=== PATIENT | male | born 1970 | race Caucasian/White ===

== ENCOUNTER 2018-02-03 15:49 | Emergency (ER) | payer BC ==
--- NOTE | 2018-02-03 18:05 | UC ---
Lower Extremity/Ankle HPI - HPI Summary HPI Summary: walked [place] distances in [place] and developed a blister on trhe foot several days ago. having trouble walking now on it denies ever or chills. family hx. positive for DM - History of Current Complaint Chief Complaint: UCLowerExtremity Stated Complaint: SOFT TISSUE COMPLAINT Time Seen by Provider: 02/03/18 17:19 Hx Obtained From: Patient Onset/Duration: Sudden Onset, Lasting Days Severity Initially: Moderate Severity Currently: Moderate Pain Intensity: 3 Aggravating Factor(s): Standing, Ambulation Alleviating Factor(s): Rest Able to Bear Weight: No - Allergies/Home Medications Allergies/Adverse Reactions: Allergies Allergy/AdvReac Type Severity Reaction Status Date / Time No Known Allergies Allergy Verified 02/03/18 17:11 Home Medications: Home Medications Neomycin/Polym/Bacit TOP OINT* [Neosporin TOP OINT TUBE*] 1 applic .SEE ORDER PRN 02/03/18 [History] PMH/Surg Hx/FS Hx/Imm Hx Previously Healthy: Yes - Surgical History Surgical History: None - Social History Alcohol Use: Occasionally Substance Use Type: None Smoking Status (MU): Never Smoked Tobacco Review of Systems Constitutional: Negative Skin: Other - large blister right foot Eyes: Negative ENT: Negative Respiratory: Negative Cardiovascular: Negative Gastrointestinal: Negative Genitourinary: Negative Motor: Negative Neurovascular: Negative Musculoskeletal: Negative Neurological: Negative Is Patient Immunocompromised?: Yes All Other Systems Reviewed And Are Negative: Yes Physical Exam Triage Information Reviewed: Yes Appearance: Well-Appearing, Obese Vital Signs: Initial Vital Signs Temp 35.9 C 02/03/18 17:08 Pulse 114 02/03/18 17:08 Resp 16 02/03/18 17:08 BP 159/91 02/03/18 17:08 Pulse Ox 98 02/03/18 17:08 Vital Signs Reviewed: Yes Eye Exam: Normal Eyes: Positive: Conjunctiva Clear ENT Exam: Normal Skin Exam: Other - large superficial blister plantar portion of right foot, without surrounding cellulitis Lower Extremity Course/Dx - Differential Dx/Diagnosis Provider Diagnoses: diabetes mellitus. blister foot Discharge - Sign-Out/Discharge Documenting (check all that apply): Patient Departure All imaging exams completed and their final reports reviewed: No - Discharge Plan Condition: Good Disposition: HOME Prescriptions: cephALEXin [Keflex] 500 mg PO TID #21 capsule Metformin HCl [Metformin HCl ER] 1,000 mg PO DAILY #30 tab.er.24 Patient Education Materials: Type 2 Diabetes in Adults: New Diagnosis (ED), Cellulitis (DC), Diabetic Foot Ulcers (ED), Foot Care for People with Diabetes ( ED) Referrals: No Primary Care Phys,NOPCP [Primary Care Provider] - Additional Instructions: follow up here in two days - Billing Disposition and Condition Condition: GOOD Disposition: Home
[2018-02-03] MEDS ORDERED: Mupirocin 2% OINT* TUBE TOPICAL ONE (18:13)
[2018-02-03] MEDS ORDERED: Bacitracin OINTMENT* 0.5% 0.5 oz TUBE TOPICAL ONE (18:50)
[2018-02-03 19:16] VITALS: BP 145/90
[2018-02-04] MEDS ORDERED: Bacitracin OINTMENT* 0.5% 0.5 oz TUBE TOPICAL SCH (09:00)
[2018-02-04 10:44] LABS: ABS Basophils 0.1 10^3/ul (0-0.2); ABS Eosinophils 0.1 10^3/ul (0-0.6); ABS Monocytes 0.6 10^3/ul (0-0.8); ABS Neutrophils 6.7 10^3/ul (1.5-7.7); ABS Nucleated RBC 0 10^3/ul; Eosinophil % 0.5 % (0-6); Hematocrit 49 % (42-52); Hemoglobin 16.9 g/dl (14.0-18.0); Mean Corpuscular HGB Conc 35 g/dl (31-36); Mean Corpuscular Hemoglobin 32 pg (27-31); Mean Corpuscular Volume 92 fL (80-94); Mean Platelet Volume 9.6 um3 (7.4-10.4); Nucleated Red Blood Cells % 0.1; Platelet Count 210 10^3/ul (150-450); Red Blood Count 5.28 10^6/ul (4.00-5.40); Red Cell Distribution Width 13 % (10.5-15); White Blood Count 9.4 10^3/ul (3.5-10.8)
[2018-02-04 10:57] LABS: EGFR Non-African American 113.4 (>60)
--- NOTE | 2018-02-04 19:58 | UC ---
- Progress Note Progress Note: cbc. cmp reviewed slight increased glucose no change 02/04/2018 Discharge - Sign-Out/Discharge Documenting (check all that apply): Post-Discharge Follow Up All imaging exams completed and their final reports reviewed: No - Discharge Plan Condition: Good Disposition: HOME Prescriptions: cephALEXin [Keflex] 500 mg PO TID #21 capsule Metformin HCl [Metformin HCl ER] 1,000 mg PO DAILY #30 tab.er.24 Patient Education Materials: Cellulitis (DC), Foot Care for People with Diabetes (ED), Type 2 Diabetes in Adults: New Diagnosis (ED), Diabetic Foot Ulcers (ED) Referrals: No Primary Care Phys,NOPCP [Primary Care Provider] - Additional Instructions: follow up here in two days - Billing Disposition and Condition Condition: GOOD Disposition: Home
--- NOTE | 2018-02-04 19:59 | UC ---
- Progress Note Progress Note: pt with elevated Hba1C please call pt - provide care connections and physician referral center Ljj 02/04/18 Discharge - Sign-Out/Discharge Documenting (check all that apply): Post-Discharge Follow Up All imaging exams completed and their final reports reviewed: No - Discharge Plan Condition: Good Disposition: HOME Prescriptions: cephALEXin [Keflex] 500 mg PO TID #21 capsule Metformin HCl [Metformin HCl ER] 1,000 mg PO DAILY #30 tab.er.24 Patient Education Materials: Cellulitis (DC), Foot Care for People with Diabetes (ED), Type 2 Diabetes in Adults: New Diagnosis (ED), Diabetic Foot Ulcers (ED) Referrals: No Primary Care Phys,NOPCP [Primary Care Provider] - Additional Instructions: follow up here in two days - Billing Disposition and Condition Condition: GOOD Disposition: Home
== END 2018-02-03 19:16 | disposition home or self-care (01) ==
LOC: UCEAST 15:49
DX: S90.821A Blister (nonthermal), right foot, initial encounter (principal); X58.XXXA Exposure to other specified factors, initial encounter; Y93.01 Activity, walking, marching and hiking; Y92.9 Unspecified place or not applicable; E11.9 Type 2 diabetes mellitus without complications
CPT/HCPCS: 36415; 80053; 83036; 85025; 87070; 87205; 87640; 87641; 99202; A9270-GY; G0463

== ENCOUNTER 2018-02-05 12:46 | Emergency (ER) | payer BC ==
[2018-02-05 13:04] VITALS: BP 137/89
--- NOTE | 2018-02-05 13:41 | UC ---
Skin Complaint HPI - HPI Summary HPI Summary: 47 yo male presents for wound recheck. He tells me that he was here 2 days ago for a wound on his right foot. At that appointment he was found to have a POC glucose of 200+ and dx'd with diabetes. He had labwork drawn for an A1C and a wound culture done. He was placed on keflex. He is here for a wound check and lab results. He reports that the wound is looking better. Denies fever or chills. - History of Current Complaint Chief Complaint: UCLowerExtremity Time Seen by Provider: 02/05/18 13:12 Stated Complaint: FOOT INJURY Hx Obtained From: Patient Onset/Duration: Sudden Onset Onset Severity: Mild Current Severity: Mild Pain Intensity: 3 Pain Scale Used: 0-10 Numeric - Allergy/Home Medications Allergies/Adverse Reactions: Allergies Allergy/AdvReac Type Severity Reaction Status Date / Time No Known Allergies Allergy Verified 02/05/18 13:04 Review of Systems Constitutional: Negative Skin: Other - Wound right foot Respiratory: Negative Cardiovascular: Negative Neurovascular: Negative Neurological: Negative Psychological: Negative All Other Systems Reviewed And Are Negative: Yes PMH/Surg Hx/FS Hx/Imm Hx Endocrine History: Diabetes - Surgical History Surgical History: None - Family History Known Family History: Positive: Diabetes - Social History Occupation: Employed Full-time Lives: With Family Alcohol Use: Occasionally Substance Use Type: None Smoking Status (MU): Never Smoked Tobacco Physical Exam - Summary Physical Exam Summary: GENERAL: NAD. WDWN. No pain distress. SKIN: RIGHT FOOT: Plantar foot pad with 2.0cm round popped blister. Healing with evidence of new granulation tissue. Mild TTP. No streaking, bleeding, or drainage. CHEST: No accessory muscle use. Breathing comfortably and in no distress. CV: Pulses intact. Cap refill <2seconds NEURO: Alert. PSYCH: Age appropriate behavior. Triage Information Reviewed: Yes Vital Signs: Initial Vital Signs Temp 97.7 F 02/05/18 13:01 Pulse 122 02/05/18 13:01 Resp 18 02/05/18 13:01 BP 137/89 02/05/18 13:01 Pulse Ox 98 02/05/18 13:01 Vital Signs Reviewed: Yes Course/Dx - Course Course Of Treatment: His wound culture is not final as of this appointment, but is prelim negative for staph and MRSA - will have him continue the keflex. His lab results were reviewed with him and A1C is very high - strongly advised to follow up with care connections and/or a PCP...he says he is already in the process of calling for appointments. His foot wound was bandaged with neosporin , telfa, and kerlix. - Diagnoses Provider Diagnoses: Right foot wound. DM2 Discharge - Sign-Out/Discharge Documenting (check all that apply): Patient Departure All imaging exams completed and their final reports reviewed: No Studies - Discharge Plan Condition: Stable Disposition: HOME Referrals: No Primary Care Phys,NOPCP [Primary Care Provider] - [facility] [Outside] - As Soon As Possible Additional Instructions: If you develop a fever, shortness of breath, chest pain, new or worsening symptoms - please call your PCP or go to the ED. Your blood pressure was high at todays visit. Please see your primary provider within 4 weeks for recheck and re-evaluation. 1) Change the dressing daily and keep taking your antibiotic 2) It is very important that you follow up with [facility] or a Primary Doctor next week for a recheck - Billing Disposition and Condition Condition: STABLE Disposition: Home
== END 2018-02-05 13:55 | disposition home or self-care (01) ==
LOC: UCEAST 12:46
DX: S90.821D Blister (nonthermal), right foot, subsequent encounter (principal); X58.XXXD Exposure to other specified factors, subsequent encounter; E11.9 Type 2 diabetes mellitus without complications
CPT/HCPCS: 99212; G0463

== ENCOUNTER 2018-12-24 16:56 | Emergency (ER) | payer BC ==
[2018-12-24 17:36] VITALS: BP 137/85
--- NOTE | 2018-12-24 19:03 | UC ---
Lower Extremity/Ankle HPI - HPI Summary HPI Summary: 48 y/o male presents to the urgent care c/o bruise on his RT great toenail for the past 2 weeks s/p being outside w/ tight shoes. Pt reports he has Hx of DM neuropathy. Yesterday he accidentally re-injured his great toenail by hitting a wood. He trimmed his toenails a little bit since he thinks that is the cause of his symptoms. This morning he noticed mild redness in the medial aspect of his RT great toenail. Pain is 2/10 at touch and can move toe w/o any difficulty. Pt denies fever, SOB, numbness or tingling sensation over the Rt foot or toes, chest pain, calf pain, abdominal pain, N/V/D. - History of Current Complaint Chief Complaint: UCLowerExtremity Stated Complaint: FOOT COMPLAINT Time Seen by Provider: 12/24/18 19:01 Hx Obtained From: Patient Onset/Duration: Gradual Onset, Lasting Weeks - 2 weeks, Still Present, Worse Since - yesterday Severity Initially: Mild Severity Currently: Mild Pain Intensity: 2 Pain Scale Used: 0-10 Numeric Aggravating Factor(s): Ambulation Alleviating Factor(s): Rest, Elevation Able to Bear Weight: Yes - Risk Factors Gout Risk Factors: Negative DVT Risk Factors: Negative Septic Arthritis Risk Factor: Negative - Allergies/Home Medications Allergies/Adverse Reactions: Allergies Allergy/AdvReac Type Severity Reaction Status Date / Time No Known Allergies Allergy Verified 12/24/18 17:36 PMH/Surg Hx/FS Hx/Imm Hx Previously Healthy: Yes Endocrine History: Diabetes - Surgical History Surgical History: None - Family History Known Family History: Positive: Hypertension, Diabetes - Social History Occupation: Employed Full-time Lives: With Family Alcohol Use: Occasionally Substance Use Type: None Smoking Status (MU): Never Smoked Tobacco Review of Systems All Other Systems Reviewed And Are Negative: Yes Constitutional: Positive: Negative Skin: Positive: Bruising - on RT great toe nail w/ mild redness below the nail Eyes: Positive: Negative ENT: Positive: Negative Respiratory: Positive: Negative Cardiovascular: Positive: Negative Gastrointestinal: Positive: Negative Genitourinary: Positive: Negative Motor: Positive: Negative Neurovascular: Positive: Negative Musculoskeletal: Positive: Other: - RT great toe pain Neurological: Positive: Negative Psychological: Positive: Negative Is Patient Immunocompromised?: No Physical Exam - Summary Physical Exam Summary: Vital Signs Reviewed: Yes General: well developed, well nourished male sitting in the examining table w/o any apparent distress Eye Exam: Normal Eyes: Positive: Conjunctiva Clear - PERRLA, EOMI, fundi grossly normal ENT: Positive: Normal ENT inspection, Hearing grossly normal, Pharynx normal, TMs normal Neck: Positive: Supple, Nontender, No Lymphadenopathy Respiratory: Positive: Chest non-tender, Lungs clear, Normal breath sounds, No respiratory distress Cardiovascular: Positive: RRR, No Murmur, Pulses Normal, Brisk Capillary Refill Abdomen Description: Positive: Nontender, No Organomegaly, Soft. Negative: CVA Tenderness (R), CVA Tenderness (L) Bowel Sounds: Positive: Present Musculoskeletal: Positive: Strength Intact, ROM Intact, No Edema Neurological: Positive: Alert, Muscle Tone Normal Psychological Exam: Normal Skin: Positive: RT freat toe nail w/ subungal hematoma. Base of the nail w/ discrete erythema,, tender to palpation, mild swelling, and warm to touch, Mild serous discharge from lateral aspect of the great toe nail observed. FROM of great toe and RT foot. sensation is intact, capillary refill WNL, reflexes WNL Triage Information Reviewed: Yes Vital Signs: Initial Vital Signs Temp 98.5 F 12/24/18 17:28 Pulse 88 12/24/18 17:28 Resp 18 12/24/18 17:28 BP 137/85 12/24/18 17:28 Pulse Ox 100 12/24/18 17:28 Lower Extremity Course/Dx - Course Course Of Treatment: 8 y/o male presents to the urgent care c/o bruise on his RT great toenail for the past 2 weeks s/p being outside w/ tight shoes. Pt reports he has Hx of DM neuropathy. Yesterday he accidentally re-injured his great toenail by hitting a wood. He trimmed his toenails a little bit since he thinks that is the cause of his symptoms. This morning he noticed mild redness in the medial aspect of his RT great toenail. Pain is 2/10 at touch and can move toe w/o any difficulty. Pt denies fever, SOB, numbness or tingling sensation over the Rt foot or toes, chest pain, calf pain, abdominal pain, N/V/D. Hx obtained. Pt w/ cellulitis on the Rt great toe and subungal hematoma on examiantion. Pt is hemodynamically stable, A&OX3, Vitals: WNL. Pt declined Lidocane since Hx of Neuropathy. Trephination of subungual hematoma procedure: The procedure was explained and consent obtained. [place] protocol performed. Sterile drape and prep were done. a discrete hole performed over the subungual hematoma to release blood w/ a cauterizer. Small amount of blood release. topical Bacitracin applied over the area.Toe nail trimmed. Wound covered with sterile dressing. The patient tolerated the procedure well and neurovascular intact. Pt Rx Bactrim PO and Bacitracin oint and [place] pkts as directed below to alleviate symptoms. Pt advised to f/u w/ Training [employer] Officer Dr Rios or PCP in 2 -3 days for further management. D/C instructions explained. Pt understood and agreed with D/C instructions. - Differential Dx/Diagnosis Differential Diagnosis/HQI/PQRI: Cellulitis, Contusion, Fracture (Closed), Infection, Sprain, Strain, Tendonitis, Other - subungal hematoma Provider Diagnosis: Subungual hematoma of great toe of right foot, Cellulitis of great toe of right foot Discharge ED - Sign-Out/Discharge Documenting (check all that apply): Patient Departure - D/c home All imaging exams completed and their final reports reviewed: No Studies - Discharge Plan Condition: Stable Disposition: HOME Prescriptions: Bacitracin OINTMENT* 1 applic TOPICAL BID #1 tube Calcium Acetate/Aluminum Sulf [[place] Powder Packet] 1 each TP BID #1 powd.pack Sulfamethox/Trimethoprim DS* [Bactrim DS 800/160 TAB*] 1 tab PO BID #20 tab Patient Education Materials: Subungual Hematoma (ED), Cellulitis (ED) Referrals: Parrish Rizo MD [Primary Care Provider] - 3 Days Malcolm Rios DPM [Doctor of Podiatric Medicine] - 3 Days Additional Instructions: 1-Please take full course Bactrim PO Antibiotic. Take yogurts w/ probiotics or Culturelle to protect your GI system 2- If redness and swelling doubles in sizeafter 48 hrs of taking antibiotic and fever develops please go to the ER immediately. 3-Avoid standing for long periods of time or flexing your foot, keep it elevated and keep wound clean and dry. Apply Bacitrain oint as directed and soak your great toe w/ [place] packets as directed 4-Please F/u with your PCP on [employer] Dr Rios in 2-3 days for further evaluation and treatment. - Billing Disposition and Condition Condition: STABLE Disposition: Home - Attestation Statements Provider Attestation: Per institutional requirements, I have reviewed the chart, however, I was not consulted specifically or made aware of this patient by the midlevel provider. I did not personally evaluate, interact with , or disposition this patient.
--- NOTE | 2018-12-26 07:15 | UC ---
- Progress Note Progress Note: wound: MRSA neg culture pending on Bactrim no change yayaj 12/26/18 Course/Dx - Diagnoses Provider Diagnoses: Subungual hematoma of great toe of right foot, Cellulitis of great toe of right foot Discharge ED - Sign-Out/Discharge Documenting (check all that apply): Post-Discharge Follow Up All imaging exams completed and their final reports reviewed: No Studies - Discharge Plan Condition: Stable Disposition: HOME Prescriptions: Bacitracin OINTMENT* 1 applic TOPICAL BID #1 tube Calcium Acetate/Aluminum Sulf [[place] Powder Packet] 1 each TP BID #1 powd.pack Sulfamethox/Trimethoprim DS* [Bactrim DS 800/160 TAB*] 1 tab PO BID #20 tab Patient Education Materials: Subungual Hematoma (ED), Cellulitis (ED) Referrals: Parrish Rizo MD [Primary Care Provider] - 3 Days Malcolm Rios DPM [Doctor of Podiatric Medicine] - 3 Days Additional Instructions: 1-Please take full course Bactrim PO Antibiotic. Take yogurts w/ probiotics or Culturelle to protect your GI system 2- If redness and swelling doubles in sizeafter 48 hrs of taking antibiotic and fever develops please go to the ER immediately. 3-Avoid standing for long periods of time or flexing your foot, keep it elevated and keep wound clean and dry. Apply Bacitrain oint as directed and soak your great toe w/ [place] packets as directed 4-Please F/u with your PCP on Service Tech Dr Rios in 2-3 days for further evaluation and treatment. - Billing Disposition and Condition Condition: STABLE Disposition: Home
== END 2018-12-24 19:59 | disposition home or self-care (01) ==
LOC: UCEAST 16:56
DX: S90.111A Contusion of right great toe without damage to nail, initial encounter (principal); X58.XXXA Exposure to other specified factors, initial encounter; Y92.9 Unspecified place or not applicable; L03.031 Cellulitis of right toe
CPT/HCPCS: 11740; 87070; 87077; 87186; 87205; 87640; 87641; 99212; G0463